=== PATIENT | female | born 1960 | race Caucasian/White ===

== ENCOUNTER → 2017-04-23 | Outpatient (CLI) | payer MEDICARE, MEDICAID ==
[~2017-04-23] MED LIST: ACETAMINOPHEN-1 EAC1 PO; ACETAMINOPHEN325 M1; ADULT LOW DOSE81 MG PO; AMBIEN 10 MG TA10 MG; AMBIEN 5 MG TABL5 M1 PO; AMOXICILLIN/POTASSIU PO; AZITHROMYCIN; BENTYL 10 MG CA10 M1 PO; CALCIUM + D SO1 EACH PO; CALCIUM 500 +1 EAC5 PO; CALCIUM 600 +1 EAC1 PO; CEFTIN500 MG; CELEXA40 MG PO; CELLCEPT500 MG PO; CHLORPROMAZINE100 MG PO; CHLORPROMAZINE50 M2 PO; CHLORTHALIDONE25 MG PO; COLACE100 MG; COLACE100 MG PO; COUMADIN 3 MG TA3 MG PO; COUMADIN 4 MG TA4 M1 PO; COUMADIN 5 MG TA5 MG PO; COUMADIN7.5 MG PO; DEPO-PROVER150 MG/M1; ENOXAPARIN100 MG/1 M SQ; FISH OIL 1,0001 EAC5 PO; FISHOIL PO; FOLIC ACID1 MG PO; IRON325; IRON325 PO; K-DUR 20 MEQ T20 MEQ PO; KLOR-CON 1010 MEQ PO; LANTUS; LANTUS SC; LANTUS SUBQ; LASIX 40 MG TAB40 M1; LEVAQUIN 500 M500 M2 PO; LEVOTHYROXIN0.025 M1 PO; MEDROXYPROGESTERONE IM; METOCLOPRAMIDE 55 M1 PO; MIDODRINE HCL 55 M1 PO; MIDODRINE HCL10 MG PO; MUCINEX600 MG; MUCINEX600 MG PO; NOVOLOG100 UNIT/1 PO; NOVOLOG100 UNIT/1 SUBQ; NYSTATIN 100,0015 G1 TOP; OMEPRAZOLE20 MG PO; ONDANSETRON HCL4 M2 PO; PANTOPRAZOLE SO40 MG PO; PLAVIX 75 MG TA75 MG PO; PREDNISONE 10 M10 M1; PREDNISONE 10 M10 M1 PO; PREDNISONE 10 M10 MG PO; PREDNISONE 20 M20 M1 PO; PREDNISONE 5 MG5 M1 PO; PROBIOTIC1 EAC1 PO; PROTONIX 20 MG20 M1 PO; REGLAN 10 MG TA10 MG PO; REGLAN 5 MG TAB5 M1 PO; SEROQUEL PO; SEROQUEL XR 30300 M1 PO; SYNTHROID25 MCG PO; TESSALON PERLE100 MG PO; THORAZINE; ZETIA10 MG PO; ZOCOR 10 MG TAB10 MG PO
== END ==
LOC: M.ULTRA 13:25
DX: K80.20 Calculus of gallbladder without cholecystitis without obstruction (principal); K76.0 Fatty (change of) liver, not elsewhere classified; L92.8 Other granulomatous disorders of the skin and subcutaneous tissue; R16.1 Splenomegaly, not elsewhere classified; J13 Pneumonia due to Streptococcus pneumoniae; J96.10 Chronic respiratory failure, unspecified whether with hypoxia or hypercapnia; E87.1 Hypo-osmolality and hyponatremia; E11.9 Type 2 diabetes mellitus without complications; I10 Essential (primary) hypertension; K21.9 Gastro-esophageal reflux disease without esophagitis; E03.9 Hypothyroidism, unspecified; E66.9 Obesity, unspecified; I25.10 Atherosclerotic heart disease of native coronary artery without angina pectoris

== ENCOUNTER → 2017-05-10 | Outpatient (CLI) | payer MEDICARE, MEDICAID | LOC: M.NUC 07:15 | DX: R93.5 Abnormal findings on diagnostic imaging of other abdominal regions, including retroperitoneum (principal) ==

== ENCOUNTER → 2017-07-16 | Outpatient (CLI) | payer MEDICARE, MEDICAID ==
[2017-07-16 15:18] LABS: PROTIME 57.6 Seconds (9.20-11.50)
[2017-07-16 15:24] LABS: INR 6.1
== END ==
LOC: M.LAB 14:54
PROVIDERS: Nurse Practitioner Family
DX: I82.409 Acute embolism and thrombosis of unspecified deep veins of unspecified lower extremity (principal)

== ENCOUNTER 2017-12-09 15:34 | Emergency (ER) | payer MEDICARE, MEDICAID ==
[~2017-12-09] VITALS: Ht 165.1 cm; Wt 88.0 kg
[~2017-12-09 15:34] MED LIST changes: -BENTYL 10 MG CA10 M1 PO; -CHLORTHALIDONE25 MG PO; -COUMADIN 3 MG TA3 MG PO; -COUMADIN 4 MG TA4 M1 PO; -MIDODRINE HCL10 MG PO; -NOVOLOG100 UNIT/1 SUBQ; -ONDANSETRON HCL4 M2 PO; -PROTONIX 20 MG20 M1 PO; -REGLAN 10 MG TA10 MG PO
[2017-12-09] MEDS ORDERED: MIDODRINE HCL10 MG PO (15:50)
[2017-12-09] MEDS ORDERED: CHLORTHALIDONE25 MG PO (15:50)
[2017-12-09] MEDS ORDERED: PREDNISONE 5 MG5 M1 PO (15:50)
[2017-12-09] MEDS ORDERED: CELLCEPT500 MG PO (15:51)
[2017-12-09] MEDS ORDERED: COUMADIN 3 MG TA3 MG PO (15:51)
[2017-12-09] MEDS ORDERED: COUMADIN 4 MG TA4 M1 PO (15:51)
[2017-12-09] MEDS ORDERED: LANTUS SUBQ (15:52)
[2017-12-09] MEDS ORDERED: REGLAN 10 MG TA10 MG PO (15:52)
[2017-12-09] MEDS ORDERED: NOVOLOG100 UNIT/1 SUBQ (15:52)
[2017-12-09] MEDS ORDERED: PROTONIX 20 MG20 M1 PO (15:52)
[2017-12-09] MEDS ORDERED: BENTYL 10 MG CA10 M1 PO (15:53)
[2017-12-09] MEDS ORDERED: KLOR-CON 1010 MEQ PO (15:53)
[2017-12-09] MEDS ORDERED: ONDANSETRON HCL4 M2 PO (15:53)
[2017-12-09 16:17] LABS: ABSOLUTE BASOPHILS 0.1 thou/uL (0.0-0.2); ABSOLUTE EOSINOPHILS 0.1 thou/uL (0.0-0.7); ABSOLUTE LYMPHOCYTES 1.3 thou/uL (0.8-5.3); ABSOLUTE MONOCYTES 0.6 thou/uL (0.0-1.2); ABSOLUTE NEUTROPHILS 3.4 thou/uL (1.6-8.1); EOSINOPHILS 1.8 %; HEMOGLOBIN 13.6 gm/dL (12.0-15.0); LYMPHOCYTES 23.5 %; MCH 25.4 pg (26.0-34.0); MCHC 32.4 g/dL (28.0-37.0); MCV 78.6 fL (80.0-100.0); MONOCYTES 11.4 %; MPV 9.2 fl. (7.2-11.1); NUCLEATED RBCS 0 /100WBC; PLATELET COUNT* 185 thou/uL (150-400); POLYS 62.3 %; RBC 5.35 mil/uL (4.20-5.00); RDW-CV 17.3 % (10.5-14.5); WBC 5.4 thou/uL (4.0-11.0)
[2017-12-09 16:40] LABS: CALCIUM 8.7 mg/dL (8.5-10.1); POTASSIUM 4.1 mmol/L (3.5-5.1)
[2017-12-09 16:44] LABS: ALBUMIN 2.8 g/dL (3.4-5.0); TOTAL BILIRUBIN 0.5 mg/dL (<0.1-1.0); TOTAL PROTEIN 6.2 g/dL (6.4-8.2)
[2017-12-09 18:50] LABS: URINE BILIRUBIN NEGATIVE (Negative); URINE BLOOD NEGATIVE (Negative); URINE CLARITY CLEAR; URINE COLOR YELLOW; URINE GLUCOSE-RANDOM NEGATIVE (Negative); URINE KETONES NEGATIVE (Negative); URINE LEUKOCYTES-REFLEX NEGATIVE (Negative); URINE NITRITE-REFLEX NEGATIVE (Negative); URINE PROTEIN 2+ (Negative); URINE SPECIFIC GRAVITY 1.015 (1.005-1.030); URINE UROBILINOGEN 0.2 E.U./dl (0.2-1.0)
[2017-12-09 19:01] LABS: HYALINE CASTS 4-10 Moderate /LPF (None Seen)
[2017-12-09 19:02] LABS: MUCUS None Seen strn/LPF (None Seen); SQUAMOUS 4-10 Moderate /LPF (0-3)
[2017-12-09 19:03] LABS: BACTERIA-REFLEX 1-9 Few /HPF (None Seen); CRYSTALS None Seen /LPF (None Seen); URINE RBC None Seen /HPF (0-2); URINE WBC-REFLEX 0-5 Rare /HPF (0-5)
[2017-12-09] MEDS ORDERED: COLACE100 MG PO (19:11)
[2017-12-09 19:27] VITALS: BP 144/78
--- NOTE | 2017-12-10 14:37 | EKG ---
[place] [address] ELECTROCARDIOGRAM REPORT Name: NOAH HOUSTON Room: [facility]#: [id number] Admission: 12/09/17 Attend Phys: Discharge: 12/09/17 Date of : 62 Report #: [id number] THIS REPORT FOR: //name// [facility] ED Test Date: 2017-12-09 Test Time: 17:03:41 Pat Name: NOAH HOUSTON Department: Room: Gender: F Identifier Horse: [place] : 1960 Requested By: Eloy Denton Order Number: [id number] MD: Allen Logan Measurements Intervals Whitt Rate: 82 P: 39 NC: 177 QRS: -28 QRSD: 99 T: 41 QT: 425 QTc: 497 Interpretive Statements Sinus rhythm Left ventricular hypertrophy Inferior infarct, old Anterior Q waves, possibly due to LVH Compared to ECG 07/24/2014 15:14:54 Myocardial infarct finding now present Q waves now present Left-axis deviation no longer present ST (T wave) deviation no longer present Electronically Signed On 12-10-2017 14:37:16 CDT by Allen Logan [email or web address] <ELECTRONICALLY SIGNED> By: Allen Logan MD, [facility] 12/10/17 1437 170 170 Allen Logan MD, [facility] /EPI
== END 2017-12-09 19:30 | disposition home or self-care (01) ==
LOC: M.ERS 15:34
PROVIDERS: Nurse Practitioner Psychiatric/Mental Health
DX: R11.2 Nausea with vomiting, unspecified (principal); K59.00 Constipation, unspecified; M32.9 Systemic lupus erythematosus, unspecified; K21.9 Gastro-esophageal reflux disease without esophagitis; E11.9 Type 2 diabetes mellitus without complications; F20.0 Paranoid schizophrenia; Z95.5 Presence of coronary angioplasty implant and graft; Z88.1 Allergy status to other antibiotic agents; Z88.2 Allergy status to sulfonamides; Z88.8 Allergy status to other drugs, medicaments and biological substances

== ENCOUNTER → 2019-03-13 | Outpatient (CLI) | payer MEDICARE, MEDICAID ==
[~2019-03-13] MED LIST changes: +BENTYL 10 MG CA10 M1 PO; +CHLORTHALIDONE25 MG PO; +COUMADIN 3 MG TA3 MG PO; +COUMADIN 4 MG TA4 M1 PO; +MIDODRINE HCL10 MG PO; +NOVOLOG100 UNIT/1 SUBQ; +ONDANSETRON HCL4 M2 PO; +PROTONIX 20 MG20 M1 PO; +REGLAN 10 MG TA10 MG PO
[2019-03-13 14:06] LABS: HEMATOCRIT 34.7 % (37.0-47.0); HEMOGLOBIN 11.1 gm/dL (12.0-15.0); MCH 24.1 pg (26.0-34.0); MCHC 32.1 g/dL (28.0-37.0); MPV 8.4 fl. (7.2-11.1); NUCLEATED RBCS 0 /100WBC; PLATELET COUNT* 149 thou/uL (150-400); RBC 4.63 mil/uL (4.20-5.00); RDW-CV 20.1 % (10.5-14.5); WBC 5.2 thou/uL (4.0-11.0)
[2019-03-13 14:16] LABS: ALBUMIN 2.8 g/dL (3.4-5.0); CREATININE 1.3 mg/dL (0.6-1.3); DIRECT BILIRUBIN 0.1 mg/dL (<0.1-0.3); TOTAL BILIRUBIN 0.2 mg/dL (<0.1-1.0); TOTAL PROTEIN 6.2 g/dL (6.4-8.2)
[2019-03-13 14:36] LABS: ABSOLUTE BASOPHILS 0.1 thou/uL (0.0-0.2); ABSOLUTE MONOCYTES 0.5 thou/uL (0.0-1.2); ABSOLUTE NEUTROPHILS 3.6 thou/uL (1.6-8.1); PLATELET ESTIMATE ADEQUATE
[2019-03-13 14:37] LABS: ANISOCYTOSIS 2+; HYPOCHROMASIA 1+; POLYCHROMASIA 1+
== END ==
LOC: M.LAB 13:45
PROVIDERS: Internal Medicine Rheumatology
DX: M32.19 Other organ or system involvement in systemic lupus erythematosus (principal); Z79.899 Other long term (current) drug therapy

== ENCOUNTER 2021-04-20 09:54 | Inpatient (IN) | payer MEDICARE, MEDICAID ==
[~2021-04-20] VITALS: Ht 162.6 cm; Wt 76.7 kg
[~2021-04-20 09:54] MED LIST changes: -COUMADIN 3 MG TA3 MG PO; -COUMADIN 4 MG TA4 M1 PO; +PREDNISONE 1 MG1 M1 PO; +SEROQUEL 100 M100 M1 PO; +WARFARIN SODIUM3 MG PO; +WARFARIN SODIUM4 MG PO
[2021-04-20 10:27] VITALS: BP 72/31
[2021-04-20] MEDS ORDERED: CHLORPROMAZINE100 MG PO (10:32)
[2021-04-20] MEDS ORDERED: LIPITOR 20 MG T20 M1 PO (10:32)
[2021-04-20] MEDS ORDERED: ZETIA10 MG PO (10:33)
[2021-04-20] MEDS ORDERED: CELEXA 20 MG TA20 MG PO (10:33)
[2021-04-20] MEDS ORDERED: SLOW FE142 MG PO (10:33)
[2021-04-20] MEDS ORDERED: FLORINEF ACETA0.1 MG PO (10:34)
[2021-04-20] MEDS ORDERED: HUMALOG100 UNIT/1 SUBQ (10:34)
[2021-04-20] MEDS ORDERED: FOLIC ACID1 MG PO (10:34)
[2021-04-20] MEDS ORDERED: LANTUS SUBQ (10:34)
[2021-04-20] MEDS ORDERED: LEVO-T50 MCG PO (10:34)
[2021-04-20] MEDS ORDERED: LISINOPRIL5 MG PO (10:35)
[2021-04-20] MEDS ORDERED: REGLAN 10 MG TA10 MG PO (10:35)
[2021-04-20] MEDS ORDERED: MIDODRINE HCL10 MG PO (10:35)
[2021-04-20] MEDS ORDERED: PROTONIX 20 MG20 MG PO (10:36)
[2021-04-20] MEDS ORDERED: EFFER-K 10 MEQ10 ME1 PO (10:36)
[2021-04-20] MEDS ORDERED: NYSTATIN1 EA10 (10:36)
[2021-04-20] MEDS ORDERED: CELLCEPT500 M1 PO (10:36)
[2021-04-20] MEDS ORDERED: JANTOVEN4 MG PO (10:37)
[2021-04-20] MEDS ORDERED: STOOL SOFTENER100 MG PO (10:37)
[2021-04-20] MEDS ORDERED: SEROQUEL200 MG PO (10:37)
[2021-04-20] MEDS ORDERED: INTERMEZZO3.5 MG (10:37)
[2021-04-20 11:17] LABS: ABSOLUTE LYMPHOCYTES 0.9 thou/uL (0.8-5.3); ABSOLUTE MONOCYTES 0.4 thou/uL (0.0-1.2); ABSOLUTE NEUTROPHILS 3.8 thou/uL (1.6-8.1); BASOPHILS 0.1 %; EOSINOPHILS 0.1 %; HEMATOCRIT 33.2 % (37.0-47.0); HEMOGLOBIN 10.7 gm/dL (12.0-15.0); LYMPHOCYTES 18.3 %; MCHC 32.4 g/dL (28.0-37.0); MCV 74.2 fL (80.0-100.0); MONOCYTES 7.2 %; NUCLEATED RBCS 0 /100WBC; PLATELET COUNT* 99 thou/uL (150-400); POLYS 74.3 %; RBC 4.47 mil/uL (4.20-5.00); RDW-CV 17.9 % (10.5-14.5); WBC 5.2 thou/uL (4.0-11.0)
[2021-04-20 11:28] LABS: CALCIUM 8.1 mg/dL (8.5-10.1); CREATININE 2.1 mg/dL (0.6-1.3); POTASSIUM 3.7 mmol/L (3.5-5.1)
[2021-04-20 11:33] LABS: ALBUMIN 1.6 g/dL (3.4-5.0); TOTAL BILIRUBIN 0.4 mg/dL (<0.1-1.0); TOTAL PROTEIN 4.7 g/dL (6.4-8.2)
[2021-04-20 13:55] LABS: URINE BILIRUBIN NEGATIVE (Negative); URINE BLOOD NEGATIVE (Negative); URINE CLARITY CLEAR; URINE COLOR YELLOW; URINE GLUCOSE-RANDOM NEGATIVE (Negative); URINE KETONES NEGATIVE (Negative); URINE LEUKOCYTES-REFLEX NEGATIVE (Negative); URINE NITRITE-REFLEX NEGATIVE (Negative); URINE PROTEIN 3+ (Negative); URINE SPECIFIC GRAVITY 1.025 (1.005-1.030); URINE UROBILINOGEN 0.2 E.U./dl (0.2-1.0)
[2021-04-20 14:07] LABS: BACTERIA-REFLEX 1-9 Few /HPF (None Seen); SQUAMOUS 0-3 Few /LPF (0-3); URINE RBC 0-2 Rare /HPF (0-2); URINE WBC-REFLEX 0-5 Rare /HPF (0-5)
[2021-04-20 14:08] LABS: CRYSTALS None Seen /LPF (None Seen)
[2021-04-20 14:09] LABS: FINE GRANULAR CASTS 0-3 Few /LPF (None Seen); HYALINE CASTS 0-3 Few /LPF (None Seen)
[2021-04-20 14:10] LABS: CASTS None Seen /LPF (None Seen)
[2021-04-20 17:00] VITALS: BP 152/68
[2021-04-20 21:00] VITALS: BP 166/76
[2021-04-21 02:27] VITALS: BP 163/79
[2021-04-21 06:30] VITALS: BP 168/78
[2021-04-21 08:35] VITALS: BP 180/83
[2021-04-21 09:50] LABS: HEMATOCRIT 30.6 % (37.0-47.0); HEMOGLOBIN 9.6 gm/dL (12.0-15.0); MCH 23.6 pg (26.0-34.0); MCHC 31.4 g/dL (28.0-37.0); MCV 75.3 fL (80.0-100.0); NUCLEATED RBCS 0 /100WBC; PLATELET COUNT* 78 thou/uL (150-400); RBC 4.06 mil/uL (4.20-5.00); RDW-CV 18.5 % (10.5-14.5); WBC 2.5 thou/uL (4.0-11.0)
[2021-04-21 10:30] LABS: ABSOLUTE LYMPHOCYTES 0.6 thou/uL (0.8-5.3); ABSOLUTE MONOCYTES 0.2 thou/uL (0.0-1.2); ABSOLUTE NEUTROPHILS 1.7 thou/uL (1.6-8.1); LYMPHOCYTES 22.4 %; MONOCYTES 8.9 %; POLYS 68.5 %
[2021-04-21 10:31] LABS: BASOPHILS 0.1 %; EOSINOPHILS 0.1 %
[2021-04-21 12:35] VITALS: BP 142/86
--- NOTE | 2021-04-21 13:16 | EKG ---
[place] [address] ELECTROCARDIOGRAM REPORT Name: NOAH HOUSTON Room: [place] [address] ADM IN [facility]#: [id number] Admission: 04/20/21 Attend Phys: Julio Cesar Pineda Discharge: Date of : 62 Date of Service: 04/20/21 1115 Report #: [id number] THIS REPORT FOR: //name// [facility] ED Test Date: 2021-04-20 Test Time: 11:15:12 Pat Name: NOAH HOUSTON Department: Room: [facility] Gender: F Reducer: : 1960 Requested By: Scott Briones Order Number: [id number] MD: Allen Logan Measurements Intervals [place] Rate: 85 P: 20 TX: 176 QRS: -23 QRSD: 90 T: 166 QT: 417 QTc: 496 Interpretive Statements Sinus rhythm LVH with secondary repolarization abnormality Inferior infarct, old Baseline wander in lead(s) V4 Compared to ECG 12/09/2017 17:03:41 Early repolarization now present Myocardial infarct finding still present Electronically Signed On 04-21-2021 13:16:01 [employer] by Allen Logan [email or web address] <ELECTRONICALLY SIGNED> By: Allen Logan MD, [facility] 04/21/21 1316 1115 1115 Allen Logan MD, [facility] /EPI
[2021-04-21 16:35] VITALS: BP 187/73
[2021-04-21 20:35] VITALS: BP 186/82
[2021-04-22 00:35] VITALS: BP 188/94
[2021-04-22 04:35] VITALS: BP 182/77
[2021-04-22 08:31] VITALS: BP 154/77
[2021-04-22 12:33] LABS: INR 1.6; PROTIME 16.6 Seconds (9.20-11.50)
[2021-04-22 13:13] VITALS: BP 154/80
[2021-04-22 16:00] VITALS: BP 156/81
[2021-04-22 19:15] LABS: HEMATOCRIT 32.9 % (37.0-47.0); HEMOGLOBIN 10.6 gm/dL (12.0-15.0); MCH 24.1 pg (26.0-34.0); MCHC 32.3 g/dL (28.0-37.0); MCV 74.6 fL (80.0-100.0); MPV 8.5 fl. (7.2-11.1); NUCLEATED RBCS 0 /100WBC; PLATELET COUNT* 103 thou/uL (150-400); RBC 4.41 mil/uL (4.20-5.00); RDW-CV 18.1 % (10.5-14.5); WBC 7.3 thou/uL (4.0-11.0)
[2021-04-22 19:28] LABS: ALBUMIN 1.5 g/dL (3.4-5.0); CALCIUM 7.2 mg/dL (8.5-10.1); CREATININE 1.6 mg/dL (0.6-1.3); POTASSIUM 4.7 mmol/L (3.5-5.1); TOTAL BILIRUBIN 0.2 mg/dL (<0.1-1.0); TOTAL PROTEIN 4.7 g/dL (6.4-8.2)
[2021-04-22 19:35] LABS: ABSOLUTE LYMPHOCYTES 0.4 thou/uL (0.8-5.3); ABSOLUTE MONOCYTES 0.3 thou/uL (0.0-1.2); ABSOLUTE NEUTROPHILS 6.6 thou/uL (1.6-8.1)
[2021-04-22 19:37] LABS: ANISOCYTOSIS 1+; CLUMPED PLTS OCCASIONAL; HYPOCHROMASIA 1+; MICROCYTES 1+; PLATELET ESTIMATE DECREASED
[2021-04-22 20:00] VITALS: BP 167/89
[2021-04-23 00:26] VITALS: BP 119/74
[2021-04-23 04:05] VITALS: BP 153/82
[2021-04-23 04:51] LABS: CALCIUM 7.5 mg/dL (8.5-10.1); CREATININE 1.5 mg/dL (0.6-1.3); POTASSIUM 4.8 mmol/L (3.5-5.1)
[2021-04-23 08:00] VITALS: BP 152/78
[2021-04-23 11:30] VITALS: BP 166/79
[2021-04-23 16:27] VITALS: BP 158/67
[2021-04-24] VITALS: BP 154/65
[2021-04-24 04:00] VITALS: BP 130/87
[2021-04-24 04:22] LABS: ABSOLUTE LYMPHOCYTES 0.3 thou/uL (0.8-5.3); ABSOLUTE MONOCYTES 0.2 thou/uL (0.0-1.2); ABSOLUTE NEUTROPHILS 2.9 thou/uL (1.6-8.1); HEMATOCRIT 41.8 % (37.0-47.0); LYMPHOCYTES 9.8 %; MCH 23.9 pg (26.0-34.0); MCHC 31.5 g/dL (28.0-37.0); MCV 75.7 fL (80.0-100.0); MONOCYTES 6.5 %; MPV 8.5 fl. (7.2-11.1); NUCLEATED RBCS 0 /100WBC; PLATELET COUNT* 72 thou/uL (150-400); POLYS 83.7 %; RBC 5.52 mil/uL (4.20-5.00); RDW-CV 18.5 % (10.5-14.5); WBC 3.4 thou/uL (4.0-11.0)
[2021-04-24 04:24] LABS: HEMOGLOBIN 13.2 gm/dL (12.0-15.0)
[2021-04-24 04:58] LABS: CALCIUM 7.6 mg/dL (8.5-10.1); CREATININE 1.4 mg/dL (0.6-1.3); POTASSIUM 4.3 mmol/L (3.5-5.1)
[2021-04-24 08:00] VITALS: BP 143/63
[2021-04-24 12:08] VITALS: BP 174/76
[2021-04-24 16:23] VITALS: BP 137/77
[2021-04-24 20:00] VITALS: BP 121/49
[2021-04-25] VITALS: BP 140/75
[2021-04-25 04:00] VITALS: BP 150/84
[2021-04-25 05:17] LABS: ABSOLUTE LYMPHOCYTES 0.4 thou/uL (0.8-5.3); ABSOLUTE MONOCYTES 0.2 thou/uL (0.0-1.2); ABSOLUTE NEUTROPHILS 2.9 thou/uL (1.6-8.1); EOSINOPHILS 0.1 %; HEMATOCRIT 31.2 % (37.0-47.0); LYMPHOCYTES 11.9 %; MCHC 32.2 g/dL (28.0-37.0); MCV 74.5 fL (80.0-100.0); MONOCYTES 5.1 %; MPV 8.5 fl. (7.2-11.1); NUCLEATED RBCS 0 /100WBC; PLATELET COUNT* 90 thou/uL (150-400); POLYS 82.9 %; RDW-CV 18.4 % (10.5-14.5); WBC 3.5 thou/uL (4.0-11.0)
[2021-04-25 05:18] LABS: HEMOGLOBIN 10.1 gm/dL (12.0-15.0)
[2021-04-25 05:35] LABS: ALBUMIN 1.5 g/dL (3.4-5.0); CALCIUM 7.8 mg/dL (8.5-10.1); CREATININE 1.5 mg/dL (0.6-1.3); MAGNESIUM 1.8 mg/dL (1.8-2.4); POTASSIUM 4.2 mmol/L (3.5-5.1); TOTAL BILIRUBIN 0.3 mg/dL (<0.1-1.0); TOTAL PROTEIN 4.7 g/dL (6.4-8.2)
[2021-04-25 05:36] LABS: APTT 49.8 Seconds (25.0-31.3); PROTIME 25.1 Seconds (9.20-11.50)
[2021-04-25 05:39] LABS: INR 2.5
[2021-04-25 08:00] VITALS: BP 145/70
[2021-04-25 12:39] VITALS: BP 151/70
[2021-04-25 16:32] VITALS: BP 160/77
[2021-04-25 20:00] VITALS: BP 148/69
[2021-04-26] VITALS: BP 126/61
[2021-04-26 04:00] VITALS: BP 100/52
[2021-04-26 09:00] VITALS: BP 1740/69
[2021-04-26 13:41] VITALS: BP 136/70
[2021-04-26 18:52] VITALS: BP 178/87
[2021-04-26 19:45] VITALS: BP 149/70
[2021-04-26 20:44] LABS: ABSOLUTE LYMPHOCYTES 0.5 thou/uL (0.8-5.3); ABSOLUTE MONOCYTES 0.2 thou/uL (0.0-1.2); ABSOLUTE NEUTROPHILS 2.4 thou/uL (1.6-8.1); BASOPHILS 0.1 %; EOSINOPHILS 0.1 %; HEMATOCRIT 35.4 % (37.0-47.0); HEMOGLOBIN 11.2 gm/dL (12.0-15.0); LYMPHOCYTES 15.3 %; MCH 23.9 pg (26.0-34.0); MCHC 31.7 g/dL (28.0-37.0); MCV 75.3 fL (80.0-100.0); MONOCYTES 7.2 %; MPV 8.6 fl. (7.2-11.1); NUCLEATED RBCS 0 /100WBC; PLATELET COUNT* 92 thou/uL (150-400); POLYS 77.3 %; RDW-CV 18.8 % (10.5-14.5)
[2021-04-26 20:55] LABS: CALCIUM 8.1 mg/dL (8.5-10.1); CREATININE 1.6 mg/dL (0.6-1.3); TOTAL BILIRUBIN 0.3 mg/dL (<0.1-1.0); TOTAL PROTEIN 5.1 g/dL (6.4-8.2)
[2021-04-27] VITALS: BP 102/52
[2021-04-27 03:14] LABS: APTT 38.4 Seconds (25.0-31.3); INR 1.6; PROTIME 16.1 Seconds (9.20-11.50)
[2021-04-27 03:27] LABS: ALBUMIN 2.1 g/dL (3.4-5.0); CALCIUM 8.3 mg/dL (8.5-10.1); CREATININE 1.6 mg/dL (0.6-1.3); TOTAL BILIRUBIN 0.3 mg/dL (<0.1-1.0); TOTAL PROTEIN 5.4 g/dL (6.4-8.2)
[2021-04-27 04:19] VITALS: BP 143/72
[2021-04-27 08:17] VITALS: BP 106/52
[2021-04-27 11:34] VITALS: BP 134/71
[2021-04-27 15:53] VITALS: BP 149/74
[2021-04-27 21:00] VITALS: BP 129/63
[2021-04-28] VITALS: BP 124/67
[2021-04-28 04:00] VITALS: BP 111/63
[2021-04-28 04:34] LABS: ABSOLUTE MONOCYTES 0.1 thou/uL (0.0-1.2); MCHC 31.8 g/dL (28.0-37.0); RBC 4.24 mil/uL (4.20-5.00); WBC 3.1 thou/uL (4.0-11.0)
[2021-04-28 04:36] LABS: ABSOLUTE LYMPHOCYTES 0.4 thou/uL (0.8-5.3); ABSOLUTE NEUTROPHILS 2.6 thou/uL (1.6-8.1); BASOPHILS 0.1 %; EOSINOPHILS 0.1 %; HEMOGLOBIN 10.2 gm/dL (12.0-15.0); LYMPHOCYTES 12.2 %; MCV 75.5 fL (80.0-100.0); MONOCYTES 3.7 %; MPV 9.3 fl. (7.2-11.1); NUCLEATED RBCS 0 /100WBC; PLATELET COUNT* 105 thou/uL (150-400); POLYS 83.9 %; RDW-CV 18.3 % (10.5-14.5)
[2021-04-28 04:39] LABS: INR 1.9; PROTIME 19.3 Seconds (9.20-11.50)
[2021-04-28 04:44] LABS: ALBUMIN 1.8 g/dL (3.4-5.0); CREATININE 1.9 mg/dL (0.6-1.3); MAGNESIUM 1.7 mg/dL (1.8-2.4); PHOSPHORUS* 4.4 mg/dL (2.5-4.9); POTASSIUM 5.1 mmol/L (3.5-5.1); TOTAL BILIRUBIN 0.3 mg/dL (<0.1-1.0); TOTAL PROTEIN 4.9 g/dL (6.4-8.2)
[2021-04-28 08:00] VITALS: BP 117/60
[2021-04-28 12:00] VITALS: BP 146/73
[2021-04-28 16:00] VITALS: BP 145/58
--- NOTE | 2021-04-28 18:57 | CON ---
[address] [address] CONSULTATION Name: ROSEMARIENOAH Nona Room: [address] IN ..#: [id number] Admission: 04/20/21 Attend Phys: Paramjit Araujo Discharge: Date of : 62 Report #: [id number] THIS REPORT FOR: cc: Candelario Singh Steve T. DO Pervez, Adeel MD ~ DATE OF CONSULTATION: 04/22/2021 CONSULT HAS BEEN REQUESTED BY: Delgado Bruner DO. INDICATION FOR CONSULTATION: Acute hypoxemic respiratory failure secondary to COVID-19. HISTORY OF PRESENT ILLNESS: This is a 60-year-old female, past medical history includes a history of an interstitial lung disease. She follows with Dr. Hollis. She is on CellCept long-term. In the past, she has also been on a corticosteroid long-term; however, she has been off for the last year or longer. The patient has had DVTs. She is on Coumadin. Her INR was subtherapeutic, but D-dimer was not elevated on presentation. Her creatinine is 1.0 in 2018 and 1.3 in 2019. The patient was recently diagnosed with COVID-19. She is not vaccinated for COVID-19. She is reported to have been treated with a steroid in addition to a Z-KIERSTEN and hydroxychloroquine as an outpatient for COVID-19. The patient has had respiratory symptoms for several days and reports her has had symptoms for several weeks. The patient on the day of admission 2 days ago woke up, went to the restroom and collapsed and initially the family thought that she was not breathing. By the time EMS arrived, the patient was not in a respiratory arrest and did not receive CPR. Currently, the patient remains in respiratory failure. She provides only a limited history, but is short of breath. There is not much sputum production. There has been a progressive increase in oxygen needs. The patient upon initial admission was requiring about 6 liters of oxygen to maintain O2 saturation in the low 90s. She is currently no longer maintaining O2 saturation on 15 liters green flow and therefore is on a heated high-flow nasal cannula 65% FiO2 and 20 liters flow. She does appear to be stable with this. She does not have significant swelling of lower extremities. She has had some joint pains, which remain at baseline. REVIEW OF SYSTEMS: For 12 points is negative except as mentioned above. PAST MEDICAL HISTORY: Interstitial lung disease, on CellCept long-term, previously was on a steroid, but this was discontinued more than a year ago. BOOP, DVTs, on Coumadin, lupus, paranoid schizophrenia, [place] [address] CONSULTATION Name: NOAH HOUSTON Nona Room: [address] IN [facility]#: [id number] Admission: 04/20/21 Attend Phys: Paramjit Araujo Discharge: Date of : 62 Report #: [id number] disease, 3 cardiac stents, the only measure of her left ventricular ejection fraction I have is from 2018 stress test, which shows a normal left ventricular ejection fraction, diabetes, hiatal hernia. SOCIAL HISTORY: Lifetime nonsmoker. No known history of heavy alcohol use or illegal drug use. CURRENT MEDICATIONS: List in [facility] reviewed. HOME MEDICATIONS: List in [facility] reviewed. ALLERGIES: THERE ARE SEVERAL ALLERGIES LISTED ON THE RECORD. I REVIEWED THE LIST, NOT CERTAIN IF THE PATIENT IN FACT IS ALLERGIC TO ALL OF THESE. THERE IS PREVIOUS DOCUMENTATION OF HYDROXYCHLOROQUINE ALLERGY FROM 2018, BUT THE PATIENT IS REPORTED TO HAVE RECENTLY BEEN TREATED WITH HYDROXYCHLOROQUINE AND THERE IS NO RECENT REACTION DOCUMENTED. ALSO, TRICOR, SULFONAMIDE ANTIBIOTICS, ZOCOR, CLINDAMYCIN AND CELEBREX. FAMILY HISTORY: Multiple family members have COVID-19. PHYSICAL EXAMINATION: GENERAL: She is alert, awake and oriented; however, provides only a limited history. VITAL SIGNS: In the records reviewed. NECK: Does not show raised JVP. CHEST: Breath sounds are bilaterally equal. No added sounds. HEART: Regular. There is no murmur. ABDOMEN: Soft and nontender. EXTREMITIES: Lower extremities, trace edema, no calf tenderness. SKIN: Dry and intact. NEUROLOGIC: Nonfocal. LABORATORY DATA: The patient's chest x-ray as well as lab work from the th in [facility] reviewed. Lab work from the also in [facility] reviewed. The last INR is noted to be 1.6. ASSESSMENT AND PLAN: 1. Acute hypoxemic respiratory failure secondary to COVID-19. The patient does have a remote history of obstructive sleep apnea as well. Therefore, I would go ahead and order a BiPAP while asleep. Otherwise, continue to titrate oxygen, avoid supine sleep, prone position preferred if possible while asleep. 2. COVID-19, agree with dexamethasone at 6 mg b.i.d. She is also on a small dose of prednisone, which I discontinued. Would continue with remdesivir. She is immune compromised and therefore will be high risk for use of Actemra. I did [address] [place] [place] [address] CONSULTATION Name: NOAH HOUSTON Room: [address]#: [id number] Admission: 04/20/21 Attend Phys: Paramjit Araujo Discharge: Date of : 62 Report #: [id number] not consider at this time. Considering that she has been on immune suppressive medication, the patient would be a candidate according to the new emergency use authorization from the FDA for use of high antibody convalescent plasma. I will check on this, but to my knowledge we may not have it available. 3. Pulmonary infiltrates. Considering immune compromise, I will go ahead and switch her ceftriaxone over to cefepime. I ordered labs and chest x-ray now. I also ordered a nasal swab for methicillin-resistant Staphylococcus aureus and sputum culture. We will review these and then decide as to whether to broaden antibiotic coverage further. 4. Interstitial lung disease. The patient is on CellCept long-term. I will assess further risk versus benefit of holding CellCept for a few days. At this time, it appears to me that it will be low risk to hold it for a few days particularly while she will also be on a steroid. I discontinued CellCept for now. 5. Lupus, see discussion regarding CellCept above. 6. Acute renal failure. Repeat labs ordered. We will review. If creatinine still elevated, then we will do a renal ultrasound. We will discontinue lisinopril and we will assess as to whether we should continue her scheduled potassium. In case we take her off lisinopril, we will likely need alternate agents to maintain blood pressure, which has been elevated. 7. Past history of deep venous thrombosis, on Coumadin. No evidence of thromboembolism at this time. 8. History of gastroesophageal reflux disease, on a proton pump inhibitor. 9. Clostridium difficile prophylaxis. We will give her Lactinex. 10. Uncontrolled diabetes. Defer to the primary service. 11. Remote history of obstructive sleep apnea. The patient is reported to have had a continuous positive airway pressure in the past, but not recently. Unclear whether she ever used it regularly. The patient is critically ill at this time. Total time spent providing critical care to this patient today exceeds 40 minutes. <ELECTRONICALLY SIGNED> By: Lisandro Rojas MD 04/28/21 1857 1702 1938Ajoe Rojas MD /nt
[2021-04-28 22:00] VITALS: BP 125/65
[2021-04-29] VITALS: BP 132/58
[2021-04-29 04:00] VITALS: BP 132/69
[2021-04-29 08:00] VITALS: BP 127/59
[2021-04-29 11:53] VITALS: BP 146/72
[2021-04-29 16:01] VITALS: BP 146/72; BP 149/62
[2021-04-29 17:00] LABS: HEMOGLOBIN 10.3 gm/dL (12.0-15.0); MCH 24.1 pg (26.0-34.0); MCHC 32.2 g/dL (28.0-37.0); MCV 74.8 fL (80.0-100.0); MPV 9.1 fl. (7.2-11.1); NUCLEATED RBCS 0 /100WBC; PLATELET COUNT* 100 thou/uL (150-400); RBC 4.27 mil/uL (4.20-5.00); RDW-CV 18.7 % (10.5-14.5); WBC 3.1 thou/uL (4.0-11.0)
[2021-04-29 17:17] LABS: ALBUMIN 1.8 g/dL (3.4-5.0); CALCIUM 7.8 mg/dL (8.5-10.1); CREATININE 1.8 mg/dL (0.6-1.3); MAGNESIUM 2.3 mg/dL (1.8-2.4); POTASSIUM 5.2 mmol/L (3.5-5.1); TOTAL BILIRUBIN 0.2 mg/dL (<0.1-1.0); TOTAL PROTEIN 4.9 g/dL (6.4-8.2)
[2021-04-29 18:45] LABS: ABSOLUTE NEUTROPHILS 2.7 thou/uL (1.6-8.1)
[2021-04-29 18:46] LABS: ABSOLUTE LYMPHOCYTES 0.3 thou/uL (0.8-5.3); ABSOLUTE MONOCYTES 0.2 thou/uL (0.0-1.2); PLATELET ESTIMATE ADEQUATE
[2021-04-29 21:37] VITALS: BP 148/74
[2021-04-30] VITALS (7 sets, daily range): BP systolic 104–153; BP diastolic 53–77
[2021-04-30 12:53] LABS: ABSOLUTE LYMPHOCYTES 0.4 thou/uL (0.8-5.3); ABSOLUTE MONOCYTES 0.2 thou/uL (0.0-1.2); ABSOLUTE NEUTROPHILS 3.7 thou/uL (1.6-8.1); BASOPHILS 0.1 %; HEMATOCRIT 30.8 % (37.0-47.0); LYMPHOCYTES 8.3 %; MCH 24.1 pg (26.0-34.0); MCHC 32.5 g/dL (28.0-37.0); MCV 74.1 fL (80.0-100.0); MONOCYTES 5.7 %; MPV 9.9 fl. (7.2-11.1); NUCLEATED RBCS 0 /100WBC; PLATELET COUNT* 102 thou/uL (150-400); POLYS 85.9 %; RBC 4.15 mil/uL (4.20-5.00); RDW-CV 18.3 % (10.5-14.5); WBC 4.3 thou/uL (4.0-11.0)
[2021-04-30 15:43] LABS: CALCIUM 8.5 mg/dL (8.5-10.1); CREATININE 1.8 mg/dL (0.6-1.3); MAGNESIUM 2.1 mg/dL (1.8-2.4); POTASSIUM 5.1 mmol/L (3.5-5.1)
[2021-05-01 00:53] VITALS: BP 116/53
[2021-05-01 04:05] VITALS: BP 118/55
[2021-05-01 04:34] LABS: ALBUMIN 2.2 g/dL (3.4-5.0); CALCIUM 8.4 mg/dL (8.5-10.1); CREATININE 1.7 mg/dL (0.6-1.3); PHOSPHORUS* 4.2 mg/dL (2.5-4.9); POTASSIUM 5.1 mmol/L (3.5-5.1)
[2021-05-01 11:46] VITALS: BP 138/70
--- NOTE | 2021-05-01 12:30 | CON ---
[address] [address] CONSULTATION Name: NOAH HOUSTON Room: [address] IN M.R.#: [id number] Admission: 04/20/21 Attend Phys: Paramjit Araujo Discharge: Date of : 62 Report #: [id number] THIS REPORT FOR: cc: Candelario Singh Steve T. DO Khan, Abid R. MD ~ DATE OF CONSULTATION: 04/30/2021 NEPHROLOGY CONSULTATION CONSULTING PHYSICIAN: Julio Cesar Pineda MD REASON FOR CONSULTATION: Acute kidney injury. HISTORY OF PRESENT ILLNESS: A 60-year-old female who I am asked to see for elevated creatinine, initially admitted on 04/20 with hypoxia and was diagnosed with COVID-19 infection. Admission creatinine was 2.1, BUN was 39. Creatinine has come down to 1.8, but BUN has gone up to 70 in the setting of diuretics and steroids. She is very hypoxic, but has responded to a dose of diuretic. She does have a history of lupus and is on CellCept, currently that is on hold. Family is present at the bedside and helps provide some of the history as the patient is a limited historian. REVIEW OF SYSTEMS: Constitutional, psych, heme, eyes, ENT, respiratory, cardiac, GI, , endocrine, all negative except as documented above and as best as can be ascertained. PAST MEDICAL HISTORY: Coronary artery disease, obstructive sleep apnea, diabetes, history of DVT, history of lupus, interstitial lung disease, paranoid schizophrenia. FAMILY HISTORY: Nonpertinent in this 60-year-old female. SOCIAL HISTORY: No tobacco. PHYSICAL EXAMINATION: VITAL SIGNS: Blood pressure 144/67, pulse has been mostly in the 80s, respirations in the 20s, temperature 36.3. GENERAL: No acute distress. EYES: Open. EARS: Externally normal. CARDIOVASCULAR: Regular rate. LUNGS: Diminished. ABDOMEN: Soft. MUSCULOSKELETAL: [place] [address] CONSULTATION Name: NOAH HOUSTON Room: [address] IN [facility].#: [id number] Admission: 04/20/21 Attend Phys: Paramjit Araujo Discharge: Date of : 62 Report #: [id number] PSYCHIATRIC: Awake. NEUROLOGIC: No asterixis. LABORATORY DATA: White cell count 4.3, hemoglobin 10, platelets 102. Sodium 135, potassium 5.2, chloride 102, bicarbonate 22, BUN 70, creatinine 1.8, glucose 215, calcium 7.8, magnesium 2.3. These labs were done yesterday. ASSESSMENT: 1. Acute kidney injury. Creatinine on admission 2.1 with BUN of 39, increased to ____ and BUN of 70 on 04/30 in the setting of diuretic and steroids. UA showed granular casts and 3+ protein. 2. Hypoalbuminemia with an albumin of 1.8. 3. COVID-19 infection. 4. Interstitial lung disease. 5. Lupus. 6. Coronary artery disease. 7. History of deep venous thrombosis. 8. Diabetes. 9. Obstructive sleep apnea. 10. History of paranoid schizophrenia. PLAN: 1. Lab from today is pending. 2. Potassium 5.2. We will discontinue lisinopril and add a 2 gram dietary potassium restriction. 3. Urine output is excellent. Lasix will be held today and decision will be made on daily basis depending on lab and oxygen need whether she needs more diuresis. 4. Check renal ultrasound. 5. Check urine protein to creatinine ratio. 6. Check a.m. lab. 7. Case was discussed with Dr. Rojas and the patient's nurse. Thank you for requesting my opinion in the care and management of this patient. <ELECTRONICALLY SIGNED> By: Gino Bates MD 05/01/21 1230 1355 [id number] Bates MD /nt
[2021-05-01 16:00] VITALS: BP 158/81
[2021-05-01 20:00] VITALS: BP 151/84
[2021-05-01 23:58] VITALS: BP 130/52
[2021-05-02 04:00] VITALS: BP 158/68
[2021-05-02 05:46] LABS: ABSOLUTE LYMPHOCYTES 0.3 thou/uL (0.8-5.3); ABSOLUTE MONOCYTES 0.2 thou/uL (0.0-1.2); ABSOLUTE NEUTROPHILS 2.1 thou/uL (1.6-8.1); EOSINOPHILS 0.2 %; HEMATOCRIT 27.7 % (37.0-47.0); HEMOGLOBIN 8.8 gm/dL (12.0-15.0); LYMPHOCYTES 10.5 %; MCH 24.2 pg (26.0-34.0); MCHC 31.9 g/dL (28.0-37.0); MONOCYTES 6.4 %; MPV 8.6 fl. (7.2-11.1); NUCLEATED RBCS 0 /100WBC; PLATELET COUNT* 73 thou/uL (150-400); POLYS 82.9 %; RBC 3.65 mil/uL (4.20-5.00); RDW-CV 18.2 % (10.5-14.5); WBC 2.5 thou/uL (4.0-11.0)
[2021-05-02 06:06] LABS: INR 2.6; PROTIME 26.1 Seconds (9.20-11.50)
[2021-05-02 06:09] LABS: CALCIUM 8.5 mg/dL (8.5-10.1); CREATININE 1.5 mg/dL (0.6-1.3); POTASSIUM 5.3 mmol/L (3.5-5.1); TOTAL BILIRUBIN 0.3 mg/dL (<0.1-1.0); TOTAL PROTEIN 4.7 g/dL (6.4-8.2)
[2021-05-02 07:41] VITALS: BP 167/72
[2021-05-02 12:00] VITALS: BP 178/82
[2021-05-02 16:00] VITALS: BP 170/90
[2021-05-02 20:30] VITALS: BP 176/80
[2021-05-03 00:21] VITALS: BP 153/78
[2021-05-03 04:00] VITALS: BP 138/69
[2021-05-03 05:53] LABS: ABSOLUTE LYMPHOCYTES 0.3 thou/uL (0.8-5.3); ABSOLUTE MONOCYTES 0.2 thou/uL (0.0-1.2); ABSOLUTE NEUTROPHILS 2.6 thou/uL (1.6-8.1); BASOPHILS 0.1 %; EOSINOPHILS 0.3 %; HEMATOCRIT 29.8 % (37.0-47.0); HEMOGLOBIN 9.7 gm/dL (12.0-15.0); LYMPHOCYTES 10.6 %; MCH 24.2 pg (26.0-34.0); MCHC 32.4 g/dL (28.0-37.0); MCV 74.9 fL (80.0-100.0); MONOCYTES 6.3 %; MPV 8.9 fl. (7.2-11.1); NUCLEATED RBCS 0 /100WBC; PLATELET COUNT* 81 thou/uL (150-400); POLYS 82.7 %; RBC 3.98 mil/uL (4.20-5.00); WBC 3.1 thou/uL (4.0-11.0)
[2021-05-03 06:23] LABS: CALCIUM 8.7 mg/dL (8.5-10.1); CREATININE 1.6 mg/dL (0.6-1.3); MAGNESIUM 1.8 mg/dL (1.8-2.4); POTASSIUM 5.4 mmol/L (3.5-5.1); TOTAL BILIRUBIN 0.3 mg/dL (<0.1-1.0)
[2021-05-03 06:41] LABS: INR 2.3; PROTIME 22.7 Seconds (9.20-11.50)
[2021-05-03 06:54] LABS: CALCIUM 8.9 mg/dL (8.5-10.1); CREATININE 1.5 mg/dL (0.6-1.3); PHOSPHORUS* 4.5 mg/dL (2.5-4.9); POTASSIUM 5.4 mmol/L (3.5-5.1)
[2021-05-03 08:00] VITALS: BP 145/83
[2021-05-03 11:44] LABS: BE -0.8 mmol/L (-2 to +3); PCO2 41.6 mmHg (35.0-45.0); pH 7.383 (7.340-7.450)
[2021-05-03 11:47] LABS: PO2 57.7 mmHg (75.0-100.0)
[2021-05-03 12:00] VITALS: BP 126/65
[2021-05-03 16:00] VITALS: BP 163/85
[2021-05-03 21:30] VITALS: BP 118/63
[2021-05-04 00:25] VITALS: BP 129/59
[2021-05-04 04:02] LABS: BE -0.4 mmol/L (-2 to +3); PCO2 41.3 mmHg (35.0-45.0); PO2 87.2 mmHg (75.0-100.0); pH 7.392 (7.340-7.450)
[2021-05-04 04:13] VITALS: BP 121/68
[2021-05-04 05:20] LABS: ABSOLUTE LYMPHOCYTES 0.5 thou/uL (0.8-5.3); ABSOLUTE MONOCYTES 0.2 thou/uL (0.0-1.2); ABSOLUTE NEUTROPHILS 3.2 thou/uL (1.6-8.1); BASOPHILS 0.1 %; EOSINOPHILS 0.5 %; HEMOGLOBIN 9.6 gm/dL (12.0-15.0); LYMPHOCYTES 11.7 %; MCH 23.9 pg (26.0-34.0); MCHC 32.1 g/dL (28.0-37.0); MCV 74.5 fL (80.0-100.0); MONOCYTES 6.1 %; MPV 8.9 fl. (7.2-11.1); NUCLEATED RBCS 0 /100WBC; PLATELET COUNT* 89 thou/uL (150-400); POLYS 81.6 %; RBC 4.02 mil/uL (4.20-5.00); RDW-CV 17.8 % (10.5-14.5)
[2021-05-04 05:40] LABS: CALCIUM 8.9 mg/dL (8.5-10.1); CREATININE 1.4 mg/dL (0.6-1.3); MAGNESIUM 1.7 mg/dL (1.8-2.4); PHOSPHORUS* 5.1 mg/dL (2.5-4.9); POTASSIUM 5.6 mmol/L (3.5-5.1); TOTAL BILIRUBIN 0.3 mg/dL (<0.1-1.0); TOTAL PROTEIN 5.2 g/dL (6.4-8.2)
[2021-05-04 08:00] VITALS: BP 114/68
[2021-05-04 12:01] VITALS: BP 120/69; BP 99/57
[2021-05-04 16:00] VITALS: BP 113/59
[2021-05-04 21:30] VITALS: BP 107/50
[2021-05-05 00:30] VITALS: BP 138/60
[2021-05-05 04:00] VITALS: BP 144/72
[2021-05-05 04:00] LABS: HEMATOCRIT 26.6 % (37.0-47.0); MCH 24.3 pg (26.0-34.0); NUCLEATED RBCS 0 /100WBC
[2021-05-05 04:03] LABS: HEMOGLOBIN 8.6 gm/dL (12.0-15.0); MCHC 32.4 g/dL (28.0-37.0); MCV 75.1 fL (80.0-100.0); MPV 9.1 fl. (7.2-11.1); PLATELET COUNT* 73 thou/uL (150-400); RBC 3.54 mil/uL (4.20-5.00); RDW-CV 18.1 % (10.5-14.5); WBC 3.5 thou/uL (4.0-11.0)
[2021-05-05 04:34] LABS: ALBUMIN 1.8 g/dL (3.4-5.0); CALCIUM 7.9 mg/dL (8.5-10.1); CREATININE 1.9 mg/dL (0.6-1.3); MAGNESIUM 1.8 mg/dL (1.8-2.4); PHOSPHORUS* 4.7 mg/dL (2.5-4.9); POTASSIUM 5.2 mmol/L (3.5-5.1); TOTAL BILIRUBIN 0.3 mg/dL (<0.1-1.0); TOTAL PROTEIN 4.8 g/dL (6.4-8.2)
[2021-05-05 07:40] VITALS: BP 103/60
[2021-05-05 08:10] LABS: ABSOLUTE LYMPHOCYTES 0.4 thou/uL (0.8-5.3); ABSOLUTE MONOCYTES 0.1 thou/uL (0.0-1.2); PLATELET ESTIMATE DECREASED
[2021-05-05 08:11] LABS: ANISOCYTOSIS 1+; HYPOCHROMASIA 1+
[2021-05-05 12:00] VITALS: BP 144/73
[2021-05-05 17:00] VITALS: BP 156/61
[2021-05-05 20:17] VITALS: BP 134/71
[2021-05-06 00:32] VITALS: BP 149/68
[2021-05-06 04:27] VITALS: BP 129/73
[2021-05-06 04:27] LABS: ABSOLUTE LYMPHOCYTES 0.3 thou/uL (0.8-5.3); ABSOLUTE MONOCYTES 0.2 thou/uL (0.0-1.2); ABSOLUTE NEUTROPHILS 2.5 thou/uL (1.6-8.1); BASOPHILS 0.1 %; EOSINOPHILS 0.1 %; HEMATOCRIT 28.6 % (37.0-47.0); HEMOGLOBIN 9.4 gm/dL (12.0-15.0); LYMPHOCYTES 9.6 %; MCH 24.1 pg (26.0-34.0); MCHC 32.8 g/dL (28.0-37.0); MCV 73.4 fL (80.0-100.0); MONOCYTES 7.4 %; MPV 8.9 fl. (7.2-11.1); NUCLEATED RBCS 0 /100WBC; PLATELET COUNT* 72 thou/uL (150-400); POLYS 82.8 %; RDW-CV 17.5 % (10.5-14.5)
[2021-05-06 04:41] LABS: INR 2.3; PROTIME 22.5 Seconds (9.20-11.50)
[2021-05-06 04:53] LABS: ALBUMIN 1.9 g/dL (3.4-5.0); CALCIUM 8.7 mg/dL (8.5-10.1); CREATININE 1.5 mg/dL (0.6-1.3); MAGNESIUM 1.9 mg/dL (1.8-2.4); POTASSIUM 5.2 mmol/L (3.5-5.1); TOTAL BILIRUBIN 0.3 mg/dL (<0.1-1.0); TOTAL PROTEIN 5.2 g/dL (6.4-8.2)
[2021-05-06 04:54] LABS: CALCIUM 8.8 mg/dL (8.5-10.1); CREATININE 1.5 mg/dL (0.6-1.3); PHOSPHORUS* 4.2 mg/dL (2.5-4.9); POTASSIUM 5.2 mmol/L (3.5-5.1)
[2021-05-06 07:45] VITALS: BP 166/81
[2021-05-06 12:00] VITALS: BP 121/79
[2021-05-06 16:00] VITALS: BP 156/73
== END 2021-05-06 20:45 | DRG 177 ==
LOC: M.ERS 09:54 → M.TBA-ER 12:35 → M.ORTHSURG 12:35
PROVIDERS: Family Medicine; Internal Medicine; Internal Medicine Critical Care Medicine; Internal Medicine Nephrology; ADMIT Internal Medicine; ATTEND Internal Medicine
DX: U07.1 COVID-19 (principal); J96.01 Acute respiratory failure with hypoxia; J12.82 Pneumonia due to coronavirus disease 2019; N17.0 Acute kidney failure with tubular necrosis; K21.9 Gastro-esophageal reflux disease without esophagitis; M32.9 Systemic lupus erythematosus, unspecified; E11.65 Type 2 diabetes mellitus with hyperglycemia; G47.33 Obstructive sleep apnea (adult) (pediatric); I25.10 Atherosclerotic heart disease of native coronary artery without angina pectoris; E88.09 Other disorders of plasma-protein metabolism, not elsewhere classified; E87.5 Hyperkalemia; R62.50 Unspecified lack of expected normal physiological development in childhood; D64.9 Anemia, unspecified; D69.6 Thrombocytopenia, unspecified; E78.5 Hyperlipidemia, unspecified; Z95.5 Presence of coronary angioplasty implant and graft; Z88.2 Allergy status to sulfonamides; Z88.8 Allergy status to other drugs, medicaments and biological substances; Z86.718 Personal history of other venous thrombosis and embolism; Z79.01 Long term (current) use of anticoagulants